=== PATIENT | female | born 1955 | race Hispanic/Latino ===

== ENCOUNTER 2024-04-01 09:36 | Inpatient (IN) | payer OTHER ==
[~2024-04-01] VITALS: Ht 149.9 cm; Wt 73.9 kg
[2024-04-01 10:13] LABS: BASOPHILS # (AUTO) 0.03 K/uL (0.00-0.20); BASOPHILS % (AUTO) 0.3 % (0.0-5.0); EOSINOPHILS # (AUTO) 0.12 K/uL (0.00-0.70); EOSINOPHILS % (AUTO) 1.2 % (0.0-8.0); HEMATOCRIT 43.7 % (36-48); IMMATURE GRANULOCYTE ABSOLUTE 0.04 K/uL (0-1); LYMPHOCYTES # (AUTO) 3.9 K/uL (1.0-4.8); LYMPHOCYTES % (AUTO) 38.7 % (21.0-51.0); MEAN CORPUSCULAR HEMOGLOBIN 28.2 pg (27.0-33.0); MEAN CORPUSCULAR HGB CONC 33.4 g/dL (32.0-36.0); MEAN CORPUSCULAR VOLUME 84.5 fL (79-99); MONOCYTES # (AUTO) 0.7 K/uL (0.1-1.0); NEUTROPHILS # (AUTO) 5.3 K/uL (1.8-7.7); NEUTROPHILS % (AUTO) 52.4 % (40.0-77.0); PLATELET COUNT (AUTO) 346 K/uL (130-400); RED BLOOD CELL COUNT(AUTO) 5.17 MIL/uL (4.00-5.50); RED CELL DISTRIBUTION WIDTH 13.1 % (11.0-15.5); WHITE BLOOD COUNT (AUTO) 10.1 K/uL (4.8-10.8)
[2024-04-01 10:24] LABS: CREATININE 0.5 mg/dL (0.5-1.0); INR 0.96 (0.85-1.15); POTASSIUM 5.1 mmol/L (3.5-5.1); PROTHROMBIN TIME 11.4 SEC (9.6-11.6)
[2024-04-01] MEDS ORDERED: LISI10TA24 PO (10:25)
[2024-04-01] MEDS ORDERED: ATOR10 PO (10:25)
[2024-04-01] MEDS ORDERED: EMPA25TA PO (10:25)
[2024-04-01 10:29] LABS: ALBUMIN 3.4 g/dL (3.5-5.0); TOTAL PROTEIN, SERUM 8.4 g/dL (6.0-8.3)
[2024-04-01 10:36] LABS: B-TYPE NATRIURETIC PEPTIDE 16 pg/mL (0-100)
[2024-04-01] MEDS ORDERED: IOHEXOL 350 MG/ML 100ML INFUS..BTL IV ONE (11:42)
[2024-04-01] MEDS: ASPIRIN 325MG TAB PO ONE (13:45)
[2024-04-01 13:55] LABS: ABG BASE EXCESS -2.1 mmol/L (-2.0-3.0); ABG HCO3 21.8 mmol/L (21.0-28.0); ABG OXYGEN SATURATION 92.3 % (95.0-99.0); ABG PCO2 35 mmHg (32-45); ABG PH 7.413 (7.35-7.450); CARBON MONOXIDE 1.1; HHb 7.6; PO2, ARTERIAL BG 63.1 mmHg (83.0-108.0); VENT MODE, BG RA (ROOM AIR)
[2024-04-01] MEDS ORDERED: LISI20TA24 PO (13:55)
[2024-04-01 14:38] LABS: ADD UA MICROSCOPIC YES; APPEARANCE,URINE CLEAR (CLEAR); BILIRUBIN,URINE NEGATIVE (NEGATIVE); COLOR,URINE LIGHT-YELLOW (YELLOW); GLUCOSE, URINE (UA) >=1000 mg/dL (NEGATIVE); KETONES,URINE 100 mg/dL (NEGATIVE); LEUKOCYTE ESTERASE ,URINE NEGATIVE Leu/uL (NEGATIVE); NITRATE,URINE NEGATIVE (NEGATIVE); OCCULT BLOOD,URINE NEGATIVE (NEGATIVE); PH,URINE 5.5 (5.0-8.0); PROTEIN,URINE 10 mg/dL (NEGATIVE); UROBILINOGEN,URINE 0.2 mg/dL (0.2-1.0)
[2024-04-01] MEDS: 0.9%NACL 1000ML 1,000 ML IV SCH (14:38)
[2024-04-01] MEDS: CEFTRIAXONE 2GM VIAL IVPB SCH (14:38)
[2024-04-01] MEDS: KETOROLAC 15MG/ML VIAL (15MG/ML) IV PRN (14:38)
[2024-04-01 14:39] LABS: MUCUS,URINE RARE LPF (None Seen); RBC,URINE 0-1 /HPF (0-1); SQUAMOUS EPITHELIAL CELL,UR RARE /HPF (0-2); WBC,URINE 0-1 /HPF (0-1)
[2024-04-01 14:44] LABS: AMPHET/METH SCREEN,URINE NEGATIVE (NEGATIVE); BARBITURATE SCREEN, URINE NEGATIVE (NEGATIVE); BENZODIAZEPINES SCREEN,URINE NEGATIVE (NEGATIVE); CANNABINOID SCREEN,URINE NEGATIVE (NEGATIVE); COCAINE SCREEN,URINE NEGATIVE (NEGATIVE); OPIATE SCREEN,URINE NEGATIVE (NEGATIVE); PHENCYCLIDINE SCREEN,URINE NEGATIVE (NEGATIVE)
[2024-04-01 14:51] LABS: SARS-CoV-2, RNA, NAAT NEGATIVE SARS CoV-2 (NEGATIVE)
[2024-04-01 14:58] LABS: INFLUENZA TYPE A NEGATIVE FOR TYPE A (NEG); INFLUENZA TYPE B NEGATIVE FOR TYPE B (NEG)
[2024-04-01 15:12] LABS: HEMOGLOBIN A1C 7.8 % (4.0-6.0)
[2024-04-01 15:29] VITALS: BP 153/87; PULSE 106; RESP 18; O2SAT 94
[2024-04-01] MEDS: INSULIN HUMULIN R 100 UNIT/ML 3ML SQ SCH (18:00)
[2024-04-01] MEDS: ACETAMINOPHEN 500 MG TABLET PO PRN (18:46)
[2024-04-01] MEDS: METHIMAZOLE 10 MG TAB PO SCH (18:47)
[2024-04-01] MEDS: PROPRANOLOL HCL 10 MG TAB PO SCH (18:47)
[2024-04-01 19:56] VITALS: BP 127/82; PULSE 86; RESP 18
[2024-04-01] MEDS: FAMOTIDINE 20MG VIAL IV SCH (20:18)
[2024-04-01] MEDS: INSULIN GLARGINE 100 UNITS/ML 10 ML VIAL SQ SCH (21:17)
[2024-04-01 21:21] VITALS: O2SAT 95
[2024-04-02] VITALS (10 sets, daily range): BP systolic 118–160; BP diastolic 43–93; PULSE 59–103; RESP 18–20; O2SAT 96
[2024-04-02 06:19] LABS: BASOPHILS # (AUTO) 0.04 K/uL (0.00-0.20); BASOPHILS % (AUTO) 0.6 % (0.0-5.0); EOSINOPHILS # (AUTO) 0.12 K/uL (0.00-0.70); EOSINOPHILS % (AUTO) 1.8 % (0.0-8.0); HEMATOCRIT 38.2 % (36-48); IMMATURE GRANULOCYTE ABSOLUTE 0.02 K/uL (0-1); LYMPHOCYTES # (AUTO) 2.1 K/uL (1.0-4.8); LYMPHOCYTES % (AUTO) 31.9 % (21.0-51.0); MEAN CORPUSCULAR HGB CONC 33.2 g/dL (32.0-36.0); MEAN CORPUSCULAR VOLUME 84.3 fL (79-99); MONOCYTES # (AUTO) 0.7 K/uL (0.1-1.0); MONOCYTES % (AUTO) 10.1 % (3.0-13.0); NEUTROPHILS # (AUTO) 3.7 K/uL (1.8-7.7); NEUTROPHILS % (AUTO) 55.3 % (40.0-77.0); PLATELET COUNT (AUTO) 319 K/uL (130-400); RED BLOOD CELL COUNT(AUTO) 4.53 MIL/uL (4.00-5.50); RED CELL DISTRIBUTION WIDTH 13.4 % (11.0-15.5); WHITE BLOOD COUNT (AUTO) 6.6 K/uL (4.8-10.8)
[2024-04-02 06:27] LABS: CREATININE 0.5 mg/dL (0.5-1.0); POTASSIUM 3.7 mmol/L (3.5-5.1)
[2024-04-02 07:48] LABS: ALBUMIN 2.9 g/dL (3.5-5.0); BILIRUBIN,DIRECT 0.1 mg/dL (0.0-0.3); BILIRUBIN,TOTAL 0.4 mg/dL (0.2-1.0); TOTAL PROTEIN, SERUM 6.9 g/dL (6.0-8.3)
[2024-04-02] MEDS: METHIMAZOLE 10 MG TAB PO SCH (08:46)
[2024-04-02] MEDS ORDERED: POTASSIUM CHLORIDE 20MEQ/100ML 100 ML IV PRN (10:30)
[2024-04-03 03:55] VITALS: BP 145/60; PULSE 78; RESP 18
[2024-04-03 03:59] LABS: BASOPHILS # (AUTO) 0.03 K/uL (0.00-0.20); BASOPHILS % (AUTO) 0.4 % (0.0-5.0); EOSINOPHILS # (AUTO) 0.17 K/uL (0.00-0.70); EOSINOPHILS % (AUTO) 2.4 % (0.0-8.0); HEMATOCRIT 39.1 % (36-48); IMMATURE GRANULOCYTE ABSOLUTE 0.02 K/uL (0-1); LYMPHOCYTES # (AUTO) 2.3 K/uL (1.0-4.8); LYMPHOCYTES % (AUTO) 32.2 % (21.0-51.0); MEAN CORPUSCULAR HGB CONC 33.2 g/dL (32.0-36.0); MEAN CORPUSCULAR VOLUME 84.1 fL (79-99); MONOCYTES # (AUTO) 0.8 K/uL (0.1-1.0); MONOCYTES % (AUTO) 10.7 % (3.0-13.0); NEUTROPHILS # (AUTO) 3.8 K/uL (1.8-7.7); PLATELET COUNT (AUTO) 283 K/uL (130-400); RED BLOOD CELL COUNT(AUTO) 4.65 MIL/uL (4.00-5.50); RED CELL DISTRIBUTION WIDTH 13.1 % (11.0-15.5)
[2024-04-03 04:29] LABS: CREATININE 0.5 mg/dL (0.5-1.0); MAGNESIUM 1.7 mg/dL (1.80-2.40); PHOSPHORUS 3.7 mg/dL (2.5-4.9); POTASSIUM 3.2 mmol/L (3.5-5.1)
[2024-04-03] MEDS: KCL 20 MEQ ERTAB PO PRN (05:01)
[2024-04-03] MEDS: MAGNESIUM 2GM PREMIX 50ML 50 ML IV PRN (05:02)
[2024-04-03] MEDS: POTASSIUM CHLORIDE 10% ELIXIR 20 MEQ/15 ML UDCUP PO PRN (05:14)
[2024-04-03] MEDS: INSULIN HUMULIN R 100 UNIT/ML 3ML SQ SCH (05:30)
[2024-04-03] MEDS: MORPHINE 2 MG SYG IVP PRN (05:34)
[2024-04-03] MEDS ORDERED: PROP10TA72 PO (06:44)
[2024-04-03] MEDS ORDERED: METHI10 PO (06:44)
[2024-04-03 07:43] VITALS: BP 147/71; PULSE 77; RESP 20
== END 2024-04-03 09:46 | disposition home or self-care (01) | DRG 313 ==
LOC: EDBD 09:36 → EDH 09:36 → EDHIP 09:37 → 2AH 14:43
PROVIDERS: ADMIT Internal Medicine; ATTEND Internal Medicine
DX: R07.89 Other chest pain (principal); I10 Essential (primary) hypertension; Z20.822 Contact with and (suspected) exposure to COVID-19; E88.89 Other specified metabolic disorders; E05.20 Thyrotoxicosis with toxic multinodular goiter without thyrotoxic crisis or storm; E87.5 Hyperkalemia; E11.9 Type 2 diabetes mellitus without complications; E04.2 Nontoxic multinodular goiter; R00.0 Tachycardia, unspecified; E78.00 Pure hypercholesterolemia, unspecified; R79.89 Other specified abnormal findings of blood chemistry; Z79.84 Long term (current) use of oral hypoglycemic drugs; Z82.49 Family history of ischemic heart disease and other diseases of the circulatory system
CPT/HCPCS: 36415; 36600; 71045; 71110; 71270; 76376; 76536; 80048; 80053; 80061; 80076; 80305; 81001; 82010; 82435; 82550; 82803; 82947; 82948; 83036; 83605; 83735; 83880; 84100; 84132; 84145; 84295; 84439; 84443; 84445; 84481; 84484; 85018; 85025; 85378; 85610; 85651; 86140; 87040; 87635; 87804; 93005; 93306; 93356; 93970; 96372; 96375; G0378; J0696; J1885; J2270; J3475; J3490; J7030; Q9967

== ENCOUNTER 2024-12-25 07:23 | Emergency (ER) | payer MEDICAID ==
[~2024-12-25] VITALS: Ht 152.4 cm; Wt 65.8 kg
[~2024-12-25 07:23] MED LIST: ATOR10 PO; EMPA25TA PO; LISI20TA24 PO; METH-387 PO; PROP10TA72 PO
--- NOTE | 2024-12-25 08:21 | ERN ---
General Chief Complaint: Difficulty Swallowing Stated Complaint: DIFFICULTY SWALLOWING Time Seen by MD: 07:25 Source: patient History of Present Illness Initial Comments Patient is a 68-year-old female coming in to be evaluated for dysphagia. Patient states she was diagnosed with thyroid nodules and is pending surgical evaluation. Patient states that the symptoms progressively have been getting worse. Allergies: Coded Allergies: No Known Drug Allergies (Verified Allergy, Unknown, 04/01/24) Home Meds Active Scripts Propranolol HCl (Inderal) 10 Mg Tab, 10 MG PO Q8H, #90 TAB 0 Refills Prov:SANGEETHA CLARK MD 04/03/24 Reported Medications Methimazole (Methimazole) 10 Mg Tablet, 1 TAB PO DAILY 11/28/24 Lisinopril (Lisinopril) 20 Mg Tablet, 20 MG PO DAILY, TAB 04/01/24 Empagliflozin (Jardiance) 25 Mg Tablet, 25 MG PO AM, TAB 04/01/24 Atorvastatin Calcium (LIPITOR) 10 Mg Tab, 10 MG PO HS, TAB 04/01/24 Past Medical History Past Medical History: Diabetes-Type II, Hypertension, Hypothyroid Medical History Other: THYROID NODULES Past Surgical History: None ROS Dictation CONSTITUTIONAL: Negative except for HPI HEAD/FACE: Negative except for HPI EENT: Negative except for HPI RESPIRATORY: Negative except for HPI GASTROINTESTINAL/ABDOMINAL: Negative except for HPI GENITOURINARY: Negative except for HPI MUSCULOSKELETAL: Negative except for HPI INTEGUMENTARY: Negative except for HPI NEUROLOGICAL/PSYCH: Negative except for HPI HEMATOLOGIC/LYMPHATIC: Negative except for HPI All Systems Negative, Except as noted above. 13 point review of systems assessed and all negative except for above. Physical Exam Physical Exam Dictation PHYSICAL EXAM: GENERAL: alert,, awake oriented x 3 HEENT: EOMI, Sclera non icteric, moist mucosa NECK: Supple, no JVD, enlarged declining rate glans LUNGS: Clear breath sounds bilaterally. No wheezes HEART: Regular rate and rhythm. Normal S1 and S2, without murmurs ABD: Abdomen soft, nontender. Bowel sounds present EXT: No clubbing or cyanosis, NEURO: Alert and oriented to person, follows commands Results Laboratory and Microbiology Lab and Micro Result Laboratory Tests Test 12/25/24 07:41 12/25/24 08:25 12/26/24 05:33 Influenza Type A Antigen Negative For Type A Influenza Type B Antigen Negative For Type B SARS-CoV-2, RNA, NAAT NEGATIVE SARS CoV-2 Group A Streptococcus Rapid negative (NEGATIVE) White Blood Count 10.5 K/uL (4.8-10.8) Red Blood Count 5.58 MIL/uL (4.00-5.50) H Hemoglobin 15.2 g/dL (12.0-16.0) Hematocrit 46.5 % (36-48) Mean Corpuscular Volume 83.3 fL (79-99) Mean Corpuscular Hemoglobin 27.2 pg (27.0-33.0) Mean Corpuscular Hemoglobin Concent 32.7 g/dL (32.0-36.0) Red Cell Distribution Width 12.9 % (11.0-15.5) Platelet Count 358 K/uL (130-400) Mean Platelet Volume 9.5 fL (7.5-10.5) Immature Granulocyte % (Auto) 0.3 % (0-1) Neutrophils (%) (Auto) 65.6 % (40.0-77.0) Lymphocytes (%) (Auto) 21.1 % (21.0-51.0) Monocytes (%) (Auto) 8.0 % (3.0-13.0) Eosinophils (%) (Auto) 4.2 % (0.0-8.0) Basophils (%) (Auto) 0.8 % (0.0-5.0) Neutrophils # (Auto) 6.9 K/uL (1.8-7.7) Lymphocytes # (Auto) 2.2 K/uL (1.0-4.8) Monocytes # (Auto) 0.8 K/uL (0.1-1.0) Eosinophils # (Auto) 0.44 K/uL (0.00-0.70) Basophils # (Auto) 0.08 K/uL (0.00-0.20) Absolute Immature Granulocyte (auto 0.03 K/uL (0-1) Nucleated Red Blood Cells 0.0 % (0.0-0.19) Sodium Level 141 mmol/L (136-145) Potassium Level 3.7 mmol/L (3.5-5.1) Chloride Level 101 mmol/L (101-111) Carbon Dioxide Level 31 mmol/L (21-32) Blood Urea Nitrogen 5 mg/dL (7-18) L Creatinine 0.6 mg/dL (0.5-1.0) Glomerular Filtration Rate Calc 98 mL/min (>90) Random Glucose 175 mg/dL (70-105) H Total Calcium 9.5 mg/dL (8.5-10.1) Thyroid Stimulating Hormone (TSH) 0.44 uIU/mL (0.36-3.74) # Labs Reviewed?: Yes EKG/XRAY/US/CT/MRI CT Scan Comment [place] [address] [place] [address] IMAGING REPORT Signed PATIENT: LEANDRO SHARPE MR#: [id number] : 1955 SEX: F AGE: 68 LOCATION: [facility] ORDER 2 STATUS: REG ER REPORT#: [id number] SERVICE 0 REASON: dysphagia ORDERING PHYSICIAN: LUKE MOLINA MD PROCEDURE: NKSOFTI W - CT NECK SOFT TISS W/CONTRAST Exam Type: CT NECK SOFT TISS W/CONTRAST Clinical Information: dysphagia Comparison: None Findings: There is a mass, heterogeneous, with heterogeneous enhancement and some calcifications, apparently arising from the right lobe of the thyroid, measuring at least 16 x 5.5 cm, significantly displacing the airway towards the left side as well as compromising the airway and causing narrowing below the hyoid cartilage. The mass appears to involve the isthmus of the thyroid as well. The left thyroid lobe is inhomogeneous and appears spared. There is enlargement of the jugulodigastric node on the right side, measuring 1.6 x 1.3 cm. No other worrisome sites of lymphadenopathy are seen. The rest of the structures of the neck are unremarkable. IMPRESSION: Large mass apparently arising from the right thyroid lobe. Neoplasm is suspected. Please note that the mass encroaches upon the airway at this time although it is not completely obliterating it. DICTATED BY: YAS GRULLON MD DATE: 12/25/24 1400 ELECTRONICALLY SIGNED BY: YAS GRULLON MD DATE: 12/25/24 1405 MDM MDM: Differential diagnosis: Rationale: Tests considered and ordered secondary to shared decision making include: Previous outside records reviewed: Old ER visits. Risk of complication and/or morbidity or mortality of patient management: None Medications-Per medication reconciliation Need for hospitalization: Patient does not meet criteria for hospitalization. Need for emergency major/minor surgery: No There are no social concerns with this patient. Prescription drug management Prescriptions will include symptomatic care Patient's prior external medical records from other ER visits were reviewed by me as indicated. Prior testing and results from previous visits were reviewed. Prior tests were taken into account with medical decision making and resource utilization, independent historian/historians were used to obtain complete medical history. I independently interpreted the test that were performed, results were reviewed by me and considered findings on radiology if ordered. Medical management and examination interpretation discussions were had by me with other qualified healthcare professionals as indicated for the patient's care. ED Course Orders Procedure Category Date Status Time Cbc With Differential LAB 12/25/24 Complete 07:30 Basic Metabolic Panel LAB 12/25/24 Complete 07:30 Covid Rna Naat LAB 12/25/24 Complete 07:30 Rapid (Group A Strep) LAB 12/25/24 Complete 07:30 Influenza Type A & B, LAB 12/25/24 Complete Rapid 07:30 Ct Neck Soft Tiss CT 12/25/24 Resulted W/Contrast 09:01 Iohexol (Omnipaque) PHA 12/25/24 Complete 09:11 Dexamethasone 4mg/Ml PHA 12/25/24 Complete 1ml Vial (Dexametha 19:30 Dexamethasone 4mg/Ml PHA 12/26/24 Complete 1ml Vial (Dexametha 03:00 Us Thyroid/Neck US 12/26/24 Resulted 02:34 Thyroid Stimulating LAB 12/26/24 Complete Hormone 02:34 Current Medications Medications (Trade) Dose Ordered Sig/Tori Route PRN Reason Start Time Stop Time Status Last Admin Dose Admin Dexamethasone Sodium Phosphate (dexaMETHasone 4MG/ML 1ML VIAL) 4 mg ONCE ONCE IV 12/26/24 03:00 12/26/24 03:01 DC 12/26/24 05:45 Dexamethasone Sodium Phosphate (dexaMETHasone 4MG/ML 1ML VIAL) 8 mg ONCE ONCE IV 12/25/24 19:30 12/25/24 19:31 DC 12/25/24 19:23 Iohexol (Omnipaque) 35,000 mg STK-MED ONCE IV 12/25/24 09:11 12/25/24 09:12 DC Vital Signs Date Time Temp Pulse Resp B/P (MAP) Pulse Ox O2 Delivery O2 Flow Rate FiO2 12/26/24 08:23 97.9 90 20 160/75 95 Room Air* 0 12/26/24 07:19 98.4 95 24 167/85 95 Room Air* 0 12/26/24 05:50 98.2 92 21 144/82 97 Room Air* 0 12/26/24 03:36 98.2 102 20 163/92 98 Room Air* 0 12/26/24 00:53 98.2 95 22 152/74 96 Room Air* 0 12/25/24 23:00 98.2 97 20 147/69 95 Room Air* 0 12/25/24 22:00 98.2 100 20 141/74 95 Room Air* 0 12/25/24 21:00 98.1 104 20 144/79 96 Room Air* 0 12/25/24 19:00 98.1 91 20 151/82 98 Room Air* 0 12/25/24 18:00 97.7 97 20 155/87 95 Room Air* 0 12/25/24 17:00 97.7 97 20 137/82 95 Room Air* 0 12/25/24 15:01 97.7 97 20 139/81 95 Room Air* 0 12/25/24 13:32 100 20 152/68 98 Room Air* 0 12/25/24 07:25 100 18 150/97 95 Room Air 0 DX & DISP Disposition: Discharge Departure Impression: Primary Impression: Thyroid mass Condition: Stable Additional Instructions: You have a thyroid mass. You need to visit a general surgeon who can remove your thyroid or an ENT specialist. I have given you a referral to an ENT specialist. Please return to the emergency department if you have any concerns. Referrals: SELF,REFERRAL (PCP) ROSANNE DENNIS III, MD I took over care this patient was 7:00 a.m.. Reviewed the chart. Stable vital signs, stable electrolytes. CT scan shows thyroid mass, she does have some encroachment on the trachea. I evaluated the patient, she has no stridor. She was resting comfortably. Discussed the case with the housekeeping/laundry supervisor. We have attempted to transfer this patient to multiple sites here in the [place]. Unable to find an accepting physician. This point in time patient was stable, she can follow up as an outpatient. We will DC. LUKE MOLINA MD Dec 25, 2024 08:21 DAVID RAMIREZ DO Dec 26, 2024 07:52 CHERIE MENJIVAR MD Dec 26, 2024 19:22
[2024-12-25 08:24] LABS: RAPID GROUP A STREP negative (NEGATIVE)
[2024-12-25 08:28] LABS: SARS-CoV-2, RNA, NAAT NEGATIVE SARS CoV-2 (NEGATIVE)
[2024-12-25 08:34] LABS: INFLUENZA TYPE A Negative For Type A (NEGATIVE); INFLUENZA TYPE B Negative For Type B (NEGATIVE)
[2024-12-25 08:39] LABS: BASOPHILS # (AUTO) 0.08 K/uL (0.00-0.20); BASOPHILS % (AUTO) 0.8 % (0.0-5.0); EOSINOPHILS # (AUTO) 0.44 K/uL (0.00-0.70); EOSINOPHILS % (AUTO) 4.2 % (0.0-8.0); HEMATOCRIT 46.5 % (36-48); IMMATURE GRANULOCYTE ABSOLUTE 0.03 K/uL (0-1); LYMPHOCYTES # (AUTO) 2.2 K/uL (1.0-4.8); LYMPHOCYTES % (AUTO) 21.1 % (21.0-51.0); MEAN CORPUSCULAR HEMOGLOBIN 27.2 pg (27.0-33.0); MEAN CORPUSCULAR HGB CONC 32.7 g/dL (32.0-36.0); MEAN CORPUSCULAR VOLUME 83.3 fL (79-99); MONOCYTES # (AUTO) 0.8 K/uL (0.1-1.0); NEUTROPHILS # (AUTO) 6.9 K/uL (1.8-7.7); NEUTROPHILS % (AUTO) 65.6 % (40.0-77.0); PLATELET COUNT (AUTO) 358 K/uL (130-400); RED BLOOD CELL COUNT(AUTO) 5.58 MIL/uL (4.00-5.50); RED CELL DISTRIBUTION WIDTH 12.9 % (11.0-15.5); WHITE BLOOD COUNT (AUTO) 10.5 K/uL (4.8-10.8)
[2024-12-25 08:53] LABS: CREATININE 0.6 mg/dL (0.5-1.0); POTASSIUM 3.7 mmol/L (3.5-5.1)
[2024-12-25] MEDS ORDERED: IOHEXOL 350 MG/ML 100ML INFUS..BTL IV ONE (09:11)
--- NOTE | 2024-12-25 14:05 | HMCIMG ---
Exam Type: CT NECK SOFT TISS W/CONTRAST Clinical Information: dysphagia Comparison: None Findings: There is a mass, heterogeneous, with heterogeneous enhancement and some calcifications, apparently arising from the right lobe of the thyroid, measuring at least 16 x 5.5 cm, significantly displacing the airway towards the left side as well as compromising the airway and causing narrowing below the hyoid cartilage. The mass appears to involve the isthmus of the thyroid as well. The left thyroid lobe is inhomogeneous and appears spared. There is enlargement of the jugulodigastric node on the right side, measuring 1.6 x 1.3 cm. No other worrisome sites of lymphadenopathy are seen. The rest of the structures of the neck are unremarkable. IMPRESSION: Large mass apparently arising from the right thyroid lobe. Neoplasm is suspected. Please note that the mass encroaches upon the airway at this time although it is not completely obliterating it.
--- NOTE | 2024-12-25 15:45 | NUR ---
TRANSFER REQUEST FOR ENT SERVICE FOR THYROID MASS PER DR MOLINA. MOHAN RN
--- NOTE | 2024-12-25 16:28 | NUR ---
TRANSFER CALL PLACE TO [facility] [phone] SPOKE WITH JONATAN INTAKE NURSE INFORMATION PROVIDED AND EMAIL REQUESTED. MOHAN MONTGOMERY
--- NOTE | 2024-12-25 17:10 | NUR ---
TRANSFER INTAKE NURSE CALL BACK STATES WORKING ON THE TRANSFER PENDING ACCEPTING MD, WILL CALL BACK. MOHAN MONTGOMERY
--- NOTE | 2024-12-25 18:21 | NUR ---
TRANSFER [facility] INTAKE NURSE CALL BACK WITH A DENIAL FOR SPECIALLY NOT AVAILABLE. DR MOLINA AWARE AND INTRUCTED TO CONTINUE WITH THE TRANSFER TO OTHER FACILIY. REPORT WILL BE GIVEN TO INCOMING HS. PT WILL BE MADE AWARE. MOHAN MONTGOMERY
[2024-12-25] MEDS: dexaMETHasone SOD PHOSPHATE 4 MG/ML 1ML VIAL IV ONE (19:23)
--- NOTE | 2024-12-25 21:13 | NUR ---
FAMILY WAS ADVISED THAT ATTEMPTS ARE STILL BEING MADE TO LOOK FOR A FACILITY. PT AND FAMILY STATE THEY WERE APPROACHED BY VOTING MACHINE MECHANIC IN REGARDS TO POSSIBLE TRANSFER TO [place]. PT STATES SHE DOES NOT WANT TO BE TRANSFERRED SO FAR OUT SHE DOES NOT HAVE HER DOCUMENTATION WITH HER AND DOES NOT WANT TO HAVE TROUBLE AT [facility].
--- NOTE | 2024-12-25 23:42 | NUR ---
PER PT REQUEST TO STAY IN THE [facility], TRANSFER REQUEST WAS INITIATED WITH IVAN AT [facility].
--- NOTE | 2024-12-25 23:54 | NUR ---
TRANSFER REQUEST TO [facility] [place] DECLINED DUE TO BED AVAILABILITY AT [facility] AND NO ENT SERVICES AT [facility].
--- NOTE | 2024-12-25 23:55 | NUR ---
RECEIVED CALL FROM IVAN AT [facility] [place], TRANSFER REQUEST WAS DECLINED DUE TO BED AVAILABILITY.
--- NOTE | 2024-12-26 00:24 | NUR ---
SPOKE WITH THE INTAKE NURSE AT [facility]. TRANSFER REQUEST INITIATED.
--- NOTE | 2024-12-26 00:38 | NUR ---
RECEIVED CALL FROM MARTINEZ AT [facility] WHO STATED THE PT WAS BEING DECLINED BY THE ENT WHO STATES THE PRESENTING PROBLEM OF THE PATIENT IS OUTSIDE OF HIS SCOPE OF PRACTICE.
--- NOTE | 2024-12-26 01:55 | NUR ---
SPOKE WITH DARRYN Y[facility], TRANSFER REQUEST INITIATED. PT WAS DECLINED DUE TO NOT HAVING ENT OR ENDOCRINE SURGEON. STATES [facility] IS IN [place] AND IS CURRENTLY NOT ACCEPTING TRANSFERS DUE TO BEING AT [place].
[2024-12-26] MEDS: dexaMETHasone SOD PHOSPHATE 4 MG/ML 1ML VIAL IV ONE (05:45)
--- NOTE | 2024-12-26 07:23 | NUR ---
FAMILY AT BEDSIDE. DENIES PAIN AT THIS TIME. STATES PHLEM IS INLY COMPLAINT. PT DRINKING WATER WHEN I MADE CONTACT. WAS ABLE TO SWALLOW AND CONTROL LIQUIDS. RASPY VOICE NOTED.
--- NOTE | 2024-12-26 07:49 | NUR ---
PT REFUSING TO BE TRANSFERED ACROSS [facility] [place] DUE TO IMMIGRATION STATUS, EXPLAINED DUE TO MEDICAL EMERGENCY THERE IS NO RISK. RISK OF EXPLAINED IF NO FURTHER MEDICAL TREATMENT EXPLORED. PT VERBALIZED UNDERSTANDING. WNO MONTGOMERYPAINTER ORDNANCE AT BEDSIDE
--- NOTE | 2024-12-26 08:08 | NUR ---
REFUSAL OF TREATMENT FORM SIGNED BY PT. STATING SHE IS REFUSING TREATMENT [place] AND TRANSPORT VIA EMS. PT IS ALERT AND ORIENTED X 4. UNDERSTANDS RISKS OF NO TREATMENT. INCLUDING . FAMILY AT BEDSIDE, SUPPORTIVE. ALSO UNDERSTANDING RISKS, STATES THEY WILL DRIVE TO [place] HERE
[2024-12-26 08:23] VITALS: BP 160/75; PULSE 90; RESP 20; TEMP 97.8; O2SAT 95
--- NOTE | 2024-12-26 08:57 | HMCIMG ---
THYROID ULTRASOUND History: Thyroid mass Comparison: December 01, 2024 Findings: The previously seen mass of the right thyroid lobe is smaller now, measuring 4 x 5 x 2 cm. On the left side, hypoechoic nodule, lower pole region, again seen, smaller in size, measuring 1.8 cm. No worrisome interval development is seen. IMPRESSION: Decrease in size of the bilateral thyroid nodules.
== END 2024-12-26 08:30 | disposition home or self-care (01) ==
LOC: EDH 07:23
DX: E07.9 Disorder of thyroid, unspecified (principal); E03.9 Hypothyroidism, unspecified; E11.9 Type 2 diabetes mellitus without complications; I10 Essential (primary) hypertension; Z79.899 Other long term (current) drug therapy; Z20.822 Contact with and (suspected) exposure to COVID-19
CPT/HCPCS: 99285; 96374; 70491; 87635; 84443; 80048; 85025; 87880; 87804 ×2; 36415 ×2; 76536; 96376; J1100 ×2; Q9967